=== PATIENT | male | born 1960 | race Caucasian/White ===

== ENCOUNTER 2020-12-14 13:38 | Emergency (ER) | payer MEDICAID ==
[~2020-12-14 13:38] MED LIST: CERTAGEN1 EACH PO; GLUCOSAMINE1000 MG PO; NORCO 5-325 TA1 EACH PO; PERCOCET 7.5/321 TAB PO; XARELTO10 MG PO
== END 2020-12-14 15:54 | disposition home or self-care (01) ==
LOC: FER 13:38
DX: S81.812A Laceration without foreign body, left lower leg, initial encounter (principal); Z23 Encounter for immunization; Z88.0 Allergy status to penicillin; W19.XXXA Unspecified fall, initial encounter; W26.8XXA Contact with other sharp object(s), not elsewhere classified, initial encounter; Y92.009 Unspecified place in unspecified non-institutional (private) residence as the place of occurrence of the external cause
CPT/HCPCS: 73590; 90471; 90715